=== PATIENT | male | born 1980 | race African-American/Black ===

== ENCOUNTER 2017-09-30 00:27 | Emergency (ER) | payer SELFPAY ==
[~2017-09-30] VITALS: Ht 182.9 cm; Wt 88.0 kg
[2017-09-30 00:29] VITALS: BP 121/85; PULSE 62; RESP 16; TEMP 97.9; O2SAT 100
== END 2017-09-30 03:40 | disposition left against medical advice (07) ==
LOC: NED 00:27
DX: K59.00 Constipation, unspecified (principal)
CPT/HCPCS: 99281

== ENCOUNTER 2017-12-03 22:33 | Emergency (ER) | payer BC ==
[~2017-12-03] VITALS: Ht 182.9 cm; Wt 86.0 kg
[2017-12-03 22:53] VITALS: BP 107/58; PULSE 63; RESP 14; TEMP 98; O2SAT 98
[2017-12-03] MEDS ORDERED: LIDOCAINE VISCOUS 2% SOLN 15 ML UDC SWISH-SWAL STA (23:19)
--- NOTE | 2017-12-03 23:23 | PD ---
HPI Chief Complaint: Abdominal Pain Time Seen by Provider: 23:00 Travel History International Travel<30 days: No Contact w/Intl Traveler<30days: No Traveled to known affect area: No History of Present Illness HPI Patient is a 37-year-old male who says about a few weeks ago he had severe epigastric pain that radiated around to the left back and he was given some medications at a different hospital that helped alleviate it. he says was diagnosed as gastritis. He says he was given a prescription but he was in alf and he was unable to take it.. now he has been out for a few days and is having severe reflux-like pain in LUQ and left back , pt has bitter taste in his mouth burning in his epigastrium left upper quadrant and also left mid back. He has nausea but no vomiting he has a history of having constipation in the past where he needed enemas that helped alleviate that. He denies black stool no melena at this time,, he denies constipation or left lower quadrant tenderness, he did not take anything to help alleviate his symptoms this time.. He comes to the ER he has not seen another doctor ,, He reports the pain is a burning sharp radiating up to his throat pain. It has been going on for 2- 3 days PFSH Past Medical History Diminished Hearing: No GERD: Yes Past Surgical History Surgical History: No Previous Surgery Social History Alcohol Use: No Tobacco Use: No Substance Use: No Allergies-Medications (Allergen,Severity, Reaction): Coded Allergies: No Known Allergies (Unverified , 09/30/17) Review of Systems Except as stated in HPI: all other systems reviewed are Neg Physical Exam Narrative GENERAL: non toxic appearance , SKIN: Warm and dry. HEAD: Atraumatic. Normocephalic. EYES: Pupils equal and round. No scleral icterus. No injection or drainage. ENT: No nasal bleeding or discharge. Mucous membranes pink and moist. multiple gold capped teeth upper and lower NECK: Trachea midline. No JVD. CARDIOVASCULAR: Regular rate and rhythm. RESPIRATORY: No accessory muscle use. Clear to auscultation. Breath sounds equal bilaterally. GASTROINTESTINAL: Abdomen soft tenderness to left UQ and Left CVA, , nondistended. Hepatic and splenic margins not palpable. MUSCULOSKELETAL: Extremities without clubbing, cyanosis, or edema. No obvious deformities. NEUROLOGICAL: Awake and alert. No obvious cranial nerve deficits. Motor grossly within normal limits. Five out of 5 muscle strength in the arms and legs. Normal speech. PSYCHIATRIC: Appropriate mood and affect; insight and judgment normal. Data Data Last Documented VS Orders Orders Al-Mag Hy-Si 40-40-4 Mg/Ml Liq (Mag-Al P (12/03/17 23:30) Lidocaine 2% Viscous (Xylocaine 2% Visco (12/03/17 23:19) Ondansetron Odt (Zofran Odt) (12/03/17 23:30) Famotidine (Pepcid) (12/03/17 23:30) Complete Blood Count With Diff (12/04/17 00:36) Comprehensive Metabolic Panel (12/04/17 00:36) Lipase (12/04/17 00:36) Pantoprazole Inj (Protonix Inj) (12/04/17 00:45) Ketorolac Inj (Toradol Inj) (12/04/17 01:45) Ed Discharge Order (12/04/17 02:10) Labs Laboratory Tests Test 12/04/17 01:20 White Blood Count 7.8 TH/MM3 Red Blood Count 4.86 MIL/MM3 Hemoglobin 14.4 GM/DL Hematocrit 41.2 % Mean Corpuscular Volume 84.8 FL Mean Corpuscular Hemoglobin 29.7 PG Mean Corpuscular Hemoglobin Concent 35.0 % Red Cell Distribution Width 13.0 % Platelet Count 152 TH/MM3 Mean Platelet Volume 9.5 FL Neutrophils (%) (Auto) 41.6 % Lymphocytes (%) (Auto) 45.9 % Monocytes (%) (Auto) 8.9 % Eosinophils (%) (Auto) 2.8 % Basophils (%) (Auto) 0.8 % Neutrophils # (Auto) 3.3 TH/MM3 Lymphocytes # (Auto) 3.6 TH/MM3 Monocytes # (Auto) 0.7 TH/MM3 Eosinophils # (Auto) 0.2 TH/MM3 Basophils # (Auto) 0.1 TH/MM3 CBC Comment DIFF FINAL Differential Comment Blood Urea Nitrogen 14 MG/DL Creatinine 1.09 MG/DL Random Glucose 112 MG/DL Total Protein 7.2 GM/DL Albumin 3.6 GM/DL Calcium Level 9.0 MG/DL Alkaline Phosphatase 55 U/L Aspartate Amino Transf (AST/SGOT) 26 U/L Alanine Aminotransferase (ALT/SGPT) 30 U/L Total Bilirubin 0.2 MG/DL Sodium Level 144 MEQ/L Potassium Level 4.1 MEQ/L Chloride Level 107 MEQ/L Carbon Dioxide Level 30.1 MEQ/L Anion Gap 7 MEQ/L Estimat Glomerular Filtration Rate 93 ML/MIN Lipase 369 U/L MDM Medical Decision Making Medical Screen Exam Complete: Yes Emergency Medical Condition: Yes Medical Record Reviewed: Yes Differential Diagnosis Costochondritis versus pneumonia versus gastritis versus esophageal reflux disease versus pneumothorax versus muscle strain Narrative Course gastritis labs normal maalox lido with moderate relief then labs to rule out pancreatiis and GB disease and IV protonix with improvement and toradol and D/C follo wup as outpt Diagnosis Primary Impression: Gastritis Patient Instructions: Chest Pain (ED), General Instructions Samson rFaire MD Dec 03, 2017 23:23
[2017-12-03] MEDS ORDERED: FAMOTIDINE 20 MG TAB PO ONE (23:30)
[2017-12-03] MEDS ORDERED: ALUMINUM/MAGNESIUM/SIMETH 30 ML CUP PO ONE (23:30)
[2017-12-03] MEDS ORDERED: ONDANSETRON ODT 4 MG TAB PO ONE (23:30)
[2017-12-04] MEDS ORDERED: PANTOPRAZOLE SODIUM 40 MG VIAL IV PUSH ONE (00:45)
[2017-12-04 01:39] LABS: AUTOMATED NEUTROPHIL # 3.3 TH/MM3 (1.8-7.7); BASOPHIL # 0.1 TH/MM3 (0-0.2); BASOPHIL % 0.8 % (0.0-2.0); EOSINOPHIL # 0.2 TH/MM3 (0-0.4); EOSINOPHIL % 2.8 % (0.0-4.0); HEMATOCRIT 41.2 % (39.0-51.0); HEMOGLOBIN 14.4 GM/DL (13.0-17.0); LYMPH % 45.9 % (9.0-44.0); LYMPHOCYTE # 3.6 TH/MM3 (1.0-4.8); MEAN CELL VOLUME 84.8 FL (80.0-100.0); MEAN CORPUSCULAR HEMOGLOBIN 29.7 PG (27.0-34.0); MEAN PLATELET VOLUME 9.5 FL (7.0-11.0); MONO % 8.9 % (0.0-8.0); MONOCYTE # 0.7 TH/MM3 (0-0.9); NEUT % 41.6 % (16.0-70.0); PLATELET COUNT 152 TH/MM3 (150-450); RED BLOOD COUNT 4.86 MIL/MM3 (4.50-5.90); WHITE BLOOD COUNT 7.8 TH/MM3 (4.0-11.0)
[2017-12-04] MEDS ORDERED: KETOROLAC TROMETHAMINE 30 MG/ML (IVP) VIAL IV PUSH ONE (01:45)
[2017-12-04 01:55] LABS: ALBUMIN 3.6 GM/DL (3.4-5.0); ALT (GPT) 30 U/L (12-78); AST (GOT) 26 U/L (15-37); BICARBONATE 30.1 MEQ/L (21.0-32.0); BLOOD UREA NITROGEN 14 MG/DL (7-18); CHLORIDE 107 MEQ/L (98-107); CREATININE 1.09 MG/DL (0.60-1.30); GLOMERULAR FILTRATION RATE 93 ML/MIN (>89); GLUCOSE,RANDOM 112 MG/DL (74-106); SODIUM (NA) 144 MEQ/L (136-145)
[2017-12-04 01:56] LABS: ALKALINE PHOSPHATASE 55 U/L (45-117); TOTAL BILIRUBIN ADULT 0.2 MG/DL (0.2-1.0); TOTAL PROTEIN 7.2 GM/DL (6.4-8.2)
== END 2017-12-04 02:35 | disposition home or self-care (01) ==
LOC: NEPE 22:33
DX: K29.70 Gastritis, unspecified, without bleeding (principal); K21.9 Gastro-esophageal reflux disease without esophagitis
CPT/HCPCS: 80053; 83690; 85025; 96374; 96375; 99283; C9113; J1885